=== PATIENT | female | born 1980 | race African-American/Black ===

== ENCOUNTER 2023-07-24 06:31 | Observation (INO) ==
[~2023-07-24 06:31] MED LIST: Naloxone 0.4 mg VIAL 0.4 mg/ml 1 ml VIAL IV PUSH PRN
[2023-07-24] MEDS ORDERED: Ondansetron 4 mg VIAL 2 MG/ML 2 ml VIAL ONE (06:59)
[2023-07-24] MEDS ORDERED: oxyCODONE SR 10 mg TAB ONE (06:59)
[2023-07-24] MEDS ORDERED: Scopolamine 1 mg/72hr PATCH ONE (07:00)
[2023-07-24] MEDS ORDERED: Clindamycin 900 MG IVPREMIX- Q8H IVPB ONE (07:00)
[2023-07-24 07:17] LABS: ABS Eosinophils 0.1 10^3/uL (0.0-0.5); ABS Monocytes 0.4 10^3/uL (0.0-0.9); ABS Neutrophils 5.7 10^3/uL (1.5-7.6); ABS Nucleated RBC 0.01 10^3/ul; Eosinophil % 0.9 %; Hematocrit 40.1 % (35-45); Hemoglobin 13.8 g/dL (11.5-14.3); Lymphocyte % 24.6 %; Mean Corpuscular Hemoglobin 30.2 pg (27-33); Mean Corpuscular Hgb Conc 34.4 g/dL (31-36); Mean Corpuscular Volume 87.9 fL (80-97); Mean Platelet Volume 8.9 fL (7.5-11.2); Nucleated Red Blood Cells % 0.1 %/100WBC (0.0-0.8); Platelet Count 250 10^3/uL (150-450); Red Blood Count 4.56 10^6/uL (3.63-4.92); Red Cell Distribution Width 13.2 % (12-17); White Blood Count 8.2 10^3/uL (3.8-11.8)
[2023-07-24 07:40] LABS: Anion Gap 8 mmol/L (2-16); Blood Urea Nitrogen 10 mg/dL (6-24); CO2 Carbon Dioxide 25 mmol/L (22-32); Calcium 9.2 mg/dL (8.6-10.3); Chloride 106 mmol/L (101-111); Creatinine, Serum 0.87 mg/dL (0.51-0.95); Glucose 91 mg/dL (70-100); Potassium 3.6 mmol/L (3.5-5.0); Sodium 139 mmol/L (135-145); eGFR CKD-EPI 84.2 (>60)
[2023-07-24 07:43] LABS: HCG Pregnancy < 0.60 mIU/mL
[2023-07-24 07:48] LABS: Activated Partial Thrombo Time 26.1 seconds (26.0-38.0); INR 0.94 (0.83-1.13)
[2023-07-24] MEDS ORDERED: Midazolam 5 mg/5 ml VIAL 1 mg/ml 5 ml VIAL (5 mg) ONE (07:55)
[2023-07-24] MEDS ORDERED: Lidocaine 1% VIAL 10 MG/ML 30 ML VIAL ONE (07:55)
[2023-07-24] MEDS ORDERED: Heparin 2 UNITS/ML IVPREMIX 3,000 UNIT/1,500 ML BAG IV ONE (07:55)
[2023-07-24] MEDS ORDERED: fentaNYL 100 mcg/2 ml 50 MCG/ML VIAL ONE (07:55)
[2023-07-24] MEDS ORDERED: Iohexol 350 (CONTRAST) 100 ML PAK IV ONE ×2 (07:55→08:32)
[2023-07-24] MEDS ORDERED: HYDROmorphone 0.5 MG/0.5 ML SYRINGE ONE ×2 (09:20→09:25)
[2023-07-24] MEDS ORDERED: fentaNYL 100 mcg/2 ml 50 MCG/ML VIAL IV SLOW PU ONE (09:58)
[2023-07-24] MEDS ORDERED: Midazolam 10 mg/10 ml VIAL 1 mg/ml 10 ml VIAL (10 mg) IV SLOW PU ONE (09:58)
[2023-07-24] MEDS ORDERED: Flumazenil 0.5 mg/5 ml 0.1 MG/ML 5 ml VIAL IV PRN (09:58)
[2023-07-24] MEDS ORDERED: Naloxone 0.4 mg VIAL 0.4 mg/ml 1 ml VIAL IV PUSH PRN (09:58)
[2023-07-24] MEDS: NS 0.9% 1000 ml BAG 1,000 ML IV SCH (10:21)
[2023-07-24] MEDS ORDERED: HYDROmorphone PCA 20 MG/20 ML PCA.SYRING PCA SCH (12:00)
[2023-07-24] MEDS: Ondansetron 4 mg VIAL 2 MG/ML 2 ml VIAL IV SCH ×2 (15:07→21:53)
[2023-07-25] MEDS: NS 0.9% 1000 ml BAG 1,000 ML IV SCH (01:27)
[2023-07-25] MEDS: Ondansetron 4 mg VIAL 2 MG/ML 2 ml VIAL IV SCH (03:50)
[2023-07-25] MEDS ORDERED: HYDROcodone/ACETAMIN 5/325 mg TAB PO PRN (08:23)
[2023-07-25] MEDS ORDERED: Ketorolac 10 mg TAB (NF) PO SCH (09:00)
[2023-07-25 10:29] VITALS: BP 129/85
== END 2023-07-25 12:45 | disposition home or self-care (01) ==
LOC: SSU 06:31 → CHICATH 06:31
PROVIDERS: ADMIT Internal Medicine; ATTEND Internal Medicine
PROC: ANG.UFE (2023-07-24 08:10)